=== PATIENT | male | born 1970 | race African-American/Black ===

== ENCOUNTER 2018-05-11 08:11 | Emergency (ER) | payer SELFPAY ==
[2018-05-11 08:35] LABS: #Eosinphils 0.2 thou/uL (0.0-0.7); #Lymphocytes 2.4 thou/uL (1.20-3.40); #Monocytes 0.7 thou/uL (0.11-0.59); #Neutrophils 5.2 thou/uL (1.40-6.50); %Basophils 0.5 % (0.0-1.0); %Eosinophils 2.9 % (0.0-10.0); %Lymphocytes 28.4 % (21.0-51.0); %Monocytes 7.9 % (0.0-10.0); %Neutrophils 60.2 % (42.0-75.0); Hemoglobin 15.9 g/dL (14.0-18.0); Mean Corpuscular HGB CONC 32.9 g/dL (32.0-36.0); Mean Corpuscular Hemoglobin 30.6 pg (27.0-31.0); Mean Corpuscular Volume 92.8 fL (78.0-98.0); Mean Platelet Volume 7.4 fL (7.4-10.4); Platelet Count 336 thou/uL (130-400); RBC Distribution Width 11.2 % (11.5-14.5); Red Blood Cell (RBC) Count 5.21 mill/uL (4.70-6.10); White Blood Cell (WBC) Count 8.6 thou/uL (4.8-10.8)
[2018-05-11 08:56] LABS: ALT (SGPT) 26 U/L (8-55); AST (SGOT) 21 U/L (5-34); Albumin 4.8 g/dL (3.5-5.0); Alkaline Phosphatase 102 U/L (40-150); Anion Gap 15 mmol/L (10-20); BUN (Urea Nitrogen) 11 mg/dL (8.9-20.6); Bilirubin, Total 0.4 mg/dL (0.2-1.2); Calc. Creatinine Clearance 0 mL/min (70-130); Calcium 10.3 mg/dL (7.8-10.44); Carbon Dioxide 27 mmol/L (22-29); Chloride 104 mmol/L (98-107); Estimated GFR-MDRD 86; Glucose 125 mg/dL (70-105); Potassium 4.6 mmol/L (3.5-5.1); Protein, Total 7.8 g/dL (6.0-8.3); Sodium 141 mmol/L (136-145)
[2018-05-11 09:52] LABS: Bilirubin Negative (Negative); Blood, Urine Negative (Negative); Clarity CLOUDY (Clear); Glucose, Urine (Dipstick) Negative (Negative); Leukocyte Negative (Negative); Nitrite Negative (Negative); Protein, Urine (Dipstick) Negative (Neg-Trace); Specific Gravity, Urine 1.009 (1.002-1.036); Urobilinogen 0.2 mg/dL (0.2-1.0); pH, Urine 7.5 (5.0-9.0)
[2018-05-11] MEDS ORDERED: Ketorolac Tromethamine 60 MG/2 ML VIAL ONE (10:18)
--- NOTE | 2018-05-11 10:18 | RAD ---
TWO VIEWS OF THE ABDOMEN AND UPRIGHT VIEW OF THE CHEST: COMPARISON: 07/24/13. HISTORY: History of diverticulitis with increased abdominal pain. FINDINGS: Supine and upright views of the abdomen and upright view of the chest show a nonspecific, nonobstruct ed bowel gas pattern. No free air or air fluid levels are seen on upright examination. The cardiomediastinal silhouette is normal in size. There is no evidence of consolidation, mass, or pleural effusion. IMPRESSION: No evidence of acute cardiopulmonary disease. POS: [facility]
== END 2018-05-11 10:53 | disposition home or self-care (01) ==
LOC: ERS 08:11
DX: K57.92 Diverticulitis of intestine, part unspecified, without perforation or abscess without bleeding (principal); F17.210 Nicotine dependence, cigarettes, uncomplicated; Z71.6 Tobacco abuse counseling
CPT/HCPCS: 36415; 74022; 80053; 81003; 83690; 85025; 96372; 99406; J1885

== ENCOUNTER 2018-06-21 04:19 | Inpatient (IN) | payer SELFPAY ==
[2018-06-21 05:54] LABS: Bilirubin Negative (Negative); Blood, Urine Negative (Negative); Clarity CLEAR (Clear); Glucose, Urine (Dipstick) Negative (Negative); Leukocyte Negative (Negative); Nitrite Negative (Negative); Protein, Urine (Dipstick) Negative (Neg-Trace); Specific Gravity, Urine 1.009 (1.002-1.036); Urobilinogen 0.2 mg/dL (0.2-1.0)
[2018-06-21 06:07] LABS: #Eosinphils 0.2 thou/uL (0.0-0.7); #Lymphocytes 2.1 thou/uL (1.20-3.40); #Neutrophils 11.1 thou/uL (1.40-6.50); %Basophils 0.3 % (0.0-1.0); %Eosinophils 1.6 % (0.0-10.0); %Lymphocytes 14.4 % (21.0-51.0); %Monocytes 6.7 % (0.0-10.0); Hemoglobin 15.4 g/dL (14.0-18.0); Mean Corpuscular HGB CONC 31.1 g/dL (32.0-36.0); Mean Corpuscular Hemoglobin 28.2 pg (27.0-31.0); Mean Corpuscular Volume 90.7 fL (78.0-98.0); Mean Platelet Volume 7.6 fL (7.4-10.4); Platelet Count 317 thou/uL (130-400); RBC Distribution Width 11.4 % (11.5-14.5); Red Blood Cell (RBC) Count 5.45 mill/uL (4.70-6.10); White Blood Cell (WBC) Count 14.4 thou/uL (4.8-10.8)
[2018-06-21] MEDS ORDERED: Ondansetron HCl/PF 4 MG/2 ML Vial ONE (06:24)
[2018-06-21 06:27] LABS: ALT (SGPT) 19 U/L (8-55); AST (SGOT) 13 U/L (5-34); Albumin 4.9 g/dL (3.5-5.0); Alkaline Phosphatase 104 U/L (40-150); Anion Gap 15 mmol/L (10-20); BUN (Urea Nitrogen) 10 mg/dL (8.9-20.6); Bilirubin, Total 0.6 mg/dL (0.2-1.2); Calc. Creatinine Clearance 0 mL/min (70-130); Calcium 10.4 mg/dL (7.8-10.44); Carbon Dioxide 26 mmol/L (22-29); Chloride 103 mmol/L (98-107); Estimated GFR-MDRD Greater than 90; Glucose 108 mg/dL (70-105); Lipase 147 U/L (8-78); Potassium 4.5 mmol/L (3.5-5.1); Protein, Total 7.9 g/dL (6.0-8.3); Sodium 139 mmol/L (136-145)
[2018-06-21 06:39] LABS: CK (CPK) 97 U/L (30-200)
[2018-06-21 06:47] LABS: Troponin I Less than 0.010 ng/mL (< 0.028)
[2018-06-21] MEDS ORDERED: Ondansetron HCl/PF 4 MG/2 ML Vial IVP PRN (08:15)
[2018-06-21] MEDS ORDERED: Morphine 4 MG/ML VIAL SLOW IVP PRN ×2 (08:17)
[2018-06-21] MEDS ORDERED: Nicotine 14 MG PATCH TD PRN (08:20)
[2018-06-21] MEDS ORDERED: NS 0.9% w/ 20 MEQ KCL 1,000 ML/1,000 ML BAG IV SCH (08:30)
[2018-06-21] MEDS ORDERED: metroNIDAZOLE 500 MG/100 ML BAG ONE (08:42)
--- NOTE | 2018-06-21 08:54 | HP ---
DATE OF SERVICE: 06/21/2018 CHIEF COMPLAINT: "So much pain, I could not sleep." HISTORY OF PRESENT ILLNESS: This is a 48-year-old male with history of diverticulitis over the past 5 years, tobacco use, peptic ulcer disease, who presents to the emergency room due to abdominal pain. The patient reports multiple flares of diverticulitis over the past 6-8 years with his last hospitalization here in 2015. He had a flare in April treated with antibiotics from his primary care and states that it never seemed like it went away. He reports over the past 2 days that he is "feeling way worse" with lower abdominal cramping, aching and burning, constant in quality, radiating to his back, rated at 10/10 in severity. He has had associated nausea, but no vomiting , one loose stool 2 days ago and none since. He denies any fevers, chills, or difficulty breathing. He does report chest pain yesterday that was "not major" and has since resolved. He has not used any pain medication, has not been seen for this. There were no precipitating or relieving factors for the pain. He does report that this is similar; however more severe, than flares in the past. In the emergency room, the patient treated with Zofran 8 mg IV, 1 liter of normal saline, morphine 6 mg and Hospitalist called for admission. ALLERGIES TO MEDICINE: NICKEL. MEDICATIONS: Dicyclomine 10 mg 4 times a day. PAST MEDICAL HISTORY: 1. Diverticulitis. 2. Peptic ulcer disease. 3. Irritable bowel syndrome. PAST SURGICAL HISTORY: 1. Hernia repair. 2. Right hand. 3. Left ankle. SOCIAL HISTORY: Patient lives alone, his mom Leatha Calvillo is his surrogate decision maker. He is a [employer]. He smokes marijuana occasionally, uses tobacco 1 pack every 3 days and socially drinks alcohol. FAMILY HISTORY: Negative for GI problems. REVIEW OF SYSTEMS: Positive for nausea, chest pain that has resolved, change in urination. He reports that it is a struggle, decreased appetite secondary to pain. Negative for fevers, chills, chest pain, shortness of breath and swelling in his legs. All remaining review of systems are reviewed and negative. PHYSICAL EXAMINATION: VITAL SIGNS: Blood pressure 119/70, pulse 55, respirations 16, saturations 97% on room air, temperature 98.6. GENERAL: Awake, alert, responsive, in no apparent distress, able to speak in full sentences. HEENT: His pupils are equal, round and reactive to light. Oral mucosa is pink and moist. NECK: Supple, nontender. LYMPHATICS: No palpable cervical or supraclavicular lymphadenopathy. LUNGS: Clear to auscultation bilateral. HEART: Normal S1, S2, regular rate and rhythm, no audible murmurs. ABDOMEN: Soft. Present bowel sounds. Tenderness to palpation in the lower quadrants. No rebound or guarding and no palpable abnormalities. EXTREMITIES: No clubbing, cyanosis, or edema. SKIN: No visible rashes. NEUROLOGIC: No focal deficits. PSYCHIATRIC: Euthymic, linear, logical, goal-directed thought process. LABORATORY DATA: 1. Reviewed. CBC; 14.4, 15.4, 49.4, 317. 2. Chemistry: 139, 4.5, 103, 26, 10, 0.9, 108. 3. LFTs are normal. 4. Lipase 147. 5. Troponin negative. IMPRESSION: 1. Lower abdominal pain consistent with prior episodes of diverticulitis, with associated nausea. 2. Peptic ulcer disease, asymptomatic. 3. IBS on dicyclomine. 4. Tobacco use. 5. Marijuana use. PLAN: 1. Observation status in the hospital. 2. Obtain a CT scan given the recurrence of the diverticulitis flares, as well as General Surgery consultation as patient reports that the flares are increasing in both quantity and severity. 3. We will start IV antibiotics with Cipro and Flagyl, manage pain, manage nausea, and hydrate with IV fluids. 4. Holding his dicyclomine for now. 5. N.p.o. until the pain is improved. 6. Deep venous thrombosis prophylaxis. The patient is ambulatory, will use pneumatic compression devices. 7. Gastrointestinal prophylaxis - IV famotidine. 8. Code status is FULL and surrogate decision maker is the patient's mom. I reviewed the plan of care with the patient who demonstrates understanding. No questions or further needs at end of evaluation. Given the severity of his pain, I do not think that the patient will do well managing this as an outpatient. Of note, on arrival to the medical floor, the patient was noted to be bradycardic in the 40's. ECG reviewed and sinus rhythm, normal axis, normal intervals, abnormal R wave progression, inverted t waves in V4-V6/inferior/ lateral leads. Patient was moved to telemetry for monitoring and echo ordered. He was also changed to inpatient status. [facility]CO
--- NOTE | 2018-06-21 09:55 | CT ---
ABDOMEN AND PELVIS CT SCAN WITH IV CONTRAST: HISTORY: A 48-year-old male with a history of left lower quadrant and suprapubic abdominal pain. History of i rritable bowel syndrome, peptic ulcer disease, and prior diverticulitis. COMPARISON: 10/08/2016 FINDINGS: The lung bases are clear. The visualized liver, pancreas, spleen, and adrenal glands, are unremarkab le. Small renal hypodensities, too small to characterize but statistically small cysts. The proxima l appendix is borderline in size, but no wall thickening, and there is contrast media extending essen tially throughout the length of the appendix. No CT evidence for acute appendicitis. There is some generalized colonic diverticulosis, including in the sigmoid colon, where there is some pericolonic f at stranding and some minimal thickening of the adjacent fascia. This is in the same location of the patient's previous acute diverticulitis seen on 10/08/2016, which, at that time, was much worse. In addition, there is a new focus of minimal pericolonic fat stranding in the mid descending colon, whi ch is new from the prior study, evidence for acute diverticulitis. No evidence for extraluminal gas or drainable abscess. Several loops of mildly dilated jejunum in the left upper quadrant, possible s ome mild focal ileus. IMPRESSION: 1. New focus of pericolonic fat stranding in the mid left colon with associated diverticulosis, evid ence for minimal acute diverticulitis without evidence for a drainable abscess or extraluminal gas. 2. Minimal pericolonic fat stranding and some adjacent fascial thickening in the region of the sigmo id colon, which is in the same location of a focus of acute diverticulitis seen on the 2016 study, wh ich was much worse at that time. This could well represent a small focus of residual chronic change. A small reactivated acute diverticulitis focus cannot be excluded. 3. No CT evidence for acute appendicitis. 4. Edi-zkyuf-zy-characterize renal low attenuation foci, statistically small cysts. 5. Minimally dilated jejunal bowel loops in the left upper quadrant, nonspecific, possibly related t o focal ileus. POS: [facility]
[2018-06-21] MEDS: Famotidine/PF 20 mg/2ml Vial SLOW IVP SCH ×2 (11:11→21:30)
[2018-06-21] MEDS ORDERED: ISOVUE-370 76%-LOCM 1 ML ONE (11:51)
[2018-06-21 12:46] VITALS: BMI 27.6
[2018-06-21] MEDS: Sodium Chloride 0.9% 1,000 ML IV SCH ×2 (13:49→21:30)
[2018-06-21] MEDS: metroNIDAZOLE 500 MG in Premix Bag 1 BAG IVPB SCH (16:13)
[2018-06-22] MEDS: metroNIDAZOLE 500 MG in Premix Bag 1 BAG IVPB SCH ×4 (00:15→23:52)
--- NOTE | 2018-06-22 03:16 | HP ---
HISTORY OF PRESENT ILLNESS: Issa Mas is a 48-year-old black male who works at [employer], has had frequent episodes of diverticulitis 2 to 3 times a year since 2015. This has been treated mostly as an outpatient with oral antibiotics. He has never had a colonoscopy, there is no family history of colon cancer. This episode has been occurring over 2 days, causing pain in his left suprapubic area and left lateral abdomen. He was admitted by hospitalist service, afebrile. He was noted to be flori ycardic hence sent to telemetry. White count is 14. CAT scan reveals changes of diverticulitis in t he mid left colon. The patient has had numerous CAT scans of abdomen and pelvis, 6 in numbers since 2012. Now in 03/2013 at this institution. He had a CAT scan of the abdomen and pelvis, that was nor mal. Stone protocol, 03/18/2016, he had a CAT scan revealing changes consistent with sigmoid colon d iverticulitis; 08/01/2016, he had a CAT scan demonstrated sigmoid diverticulitis again and on , he had a followup CAT scan revealing sigmoid diverticulitis and on 10/08/2016, he had another CA T scan demonstrating probably diverticulitis admission. The patient has been treated on other occasions from the emergency room and by an outpatient physician with diverticulitis, treating him wi th oral antibiotics and clear liquids until his pain improves and he is converted to soft diet. ALLERGIES: None. TOBACCO: None. ALCOHOL: Rarely. MEDICATIONS: Dicyclomine, Nexium. PAST SURGICAL HISTORY: Supraumbilical ventral hernia repair, surgery on his hand, surgery on his ank le. Dr. Ulloa, 11/2015, performed Ventralight mesh repair of ventral hernia, supraumbilical. PAST MEDICAL HISTORY: Mild reflux, diverticulitis. PHYSICAL EXAMINATION: GENERAL: The patient is in no distress. VITAL SIGNS: 5 feet 10 inches, 193 pounds, 27 BMI, 98.2 degrees, 57, 14, 118/57. HEAD, EYES, EARS, NOSE AND THROAT: Unremarkable. LUNGS: Clear to auscultation. No pulmonary wheezing. CARDIAC: Regular rate and rhythm without murmur or gallop. ABDOMEN: Soft, tenderness in his suprapubic area and left lateral abdomen with guarding, findings co nsistent with diverticulitis. Remainder of the right abdomen and right upper quadrant are soft and n ontender. Abdomen is nondistended. EXTREMITIES: Palpable pulses. No ankle edema. No lymphadenopathy in neck, groins, axilla. NEUROLOGICAL: Intact. Cranial nerves intact. No focal deficit. LABORATORY DATA: White count 14, hemoglobin 15. Comprehensive metabolic profile is unremarkable. ASSESSMENT AND PLAN: Recurrent episodes of diverticulitis. At this point, we would recommend contin ue treatment with intravenous antibiotics and a clear liquid diet. Would not advance his diet until his symptoms improve. Once his pain is improved, we then could advance him to a soft diet. We would recommend a low-fiber diet for two weeks and transition to high-fiber diet after 2 weeks from this e vent. Would recommend consultation as an outpatient with a binman for screening colonosc opy, both due to his age of 48 and recurrent episodes of diverticulitis. Family history is negative for colon cancer. This colonoscopy should be performed no sooner than 4 to 5 weeks. The patient cou ld be considered for elective sigmoid colon resection due to his frequent episodes of diverticulitis. This episode could probably be treated as an outpatient with oral Augmentin and liquids. He states this episode is no more severe than his past episodes. Of course, he is being worked up for his bra dycardia. Patient can follow up with Dr. Ulloa or myself in my office once discharged home on oral antibiotics. Currently, the patient can see Gastroenterology consultation as an outpatient, seek an appointment in 3 to 4 weeks to arrange colonoscopy in the next 6 to 8 weeks. He can consult in our office for future elective colon resection.
[2018-06-22 05:57] LABS: #Basophils 0.1 thou/uL (0.0-0.2); #Eosinphils 0.2 thou/uL (0.0-0.7); #Lymphocytes 2.2 thou/uL (1.20-3.40); #Monocytes 0.8 thou/uL (0.11-0.59); #Neutrophils 6.1 thou/uL (1.40-6.50); %Basophils 0.7 % (0.0-1.0); %Eosinophils 1.9 % (0.0-10.0); %Lymphocytes 23.5 % (21.0-51.0); %Monocytes 8.4 % (0.0-10.0); %Neutrophils 65.6 % (42.0-75.0); Hemoglobin 14.1 g/dL (14.0-18.0); Mean Corpuscular HGB CONC 32.7 g/dL (32.0-36.0); Mean Corpuscular Hemoglobin 29.9 pg (27.0-31.0); Mean Corpuscular Volume 91.4 fL (78.0-98.0); Mean Platelet Volume 7.6 fL (7.4-10.4); Platelet Count 266 thou/uL (130-400); RBC Distribution Width 11.4 % (11.5-14.5); White Blood Cell (WBC) Count 9.3 thou/uL (4.8-10.8)
[2018-06-22 06:20] LABS: Anion Gap 13 mmol/L (10-20); BUN (Urea Nitrogen) 7 mg/dL (8.9-20.6); Calc. Creatinine Clearance 124 mL/min (70-130); Calcium 9.5 mg/dL (7.8-10.44); Carbon Dioxide 23 mmol/L (22-29); Chloride 107 mmol/L (98-107); Estimated GFR-MDRD Greater than 90; Glucose 91 mg/dL (70-105); Potassium 4.2 mmol/L (3.5-5.1); Sodium 139 mmol/L (136-145)
[2018-06-22] MEDS: Famotidine/PF 20 mg/2ml Vial SLOW IVP SCH ×2 (08:59→21:47)
[2018-06-22] MEDS: Sodium Chloride 0.9% 1,000 ML IV SCH ×2 (11:45→17:26)
[2018-06-22] MEDS ORDERED: traMADol HCl 50 MG TAB PO PRN (12:24)
[2018-06-22] MEDS ORDERED: Acetaminophen 500 MG TAB PO PRN (12:24)
--- NOTE | 2018-06-22 12:27 | PDOC.PN ---
- Subjective Encounter Start Date: 06/22/18 (f/u diverticulitis) Encounter Start Time: 12:25 Subjective: Pt reports pain was 8/10, now 3-4/10 after morphine. Denies n/v. -: denies any new concerns - Objective Resuscitation Status: Resuscitation Status FULL:Full Resuscitation Vital Signs & Weight: Vital Signs (12 hours) Temp Pulse Resp BP Pulse Ox 06/22/18 09:00 99.9 F H 45 L 16 94 L 06/22/18 07:59 99.9 F H 45 L 16 125/62 98 06/22/18 04:00 98.8 F 55 L 16 152/67 H 98 Weight Admit Weight 192 lb 1.6 oz Weight 192 lb 1.6 oz I&O: 06/21/18 06/22/18 06/23/18 06:59 06:59 06:59 Intake Total 700 Output Total 200 Balance 500 Result Diagrams: 06/22/18 05:14 06/22/18 05:14 EKG Reviewed by me: Yes (sinus 40-60's) Phys Exam - Physical Examination Constitutional: NAD Respiratory: no wheezing, no rales, no rhonchi, clear to auscultation bilateral Cardiovascular: RRR, no significant murmur Gastrointestinal: soft, no distention, positive bowel sounds ttp lower abdomen, no rebound/guarding or palpable masses Musculoskeletal: no edema, pulses present Neurological: non-focal, moves all 4 limbs Psychiatric: normal affect Dx/Plan (1) Diverticulitis large intestine w/o perforation or abscess w/o bleeding Code(s): K57.32 - DVTRCLI OF LG INT W/O PERFORATION OR ABSCESS W/O BLEEDING Status: Acute (2) Bradycardia Code(s): R00.1 - BRADYCARDIA, UNSPECIFIED Status: Acute (3) Tobacco abuse Code(s): Z72.0 - TOBACCO USE Status: Chronic (4) Cannabis abuse Code(s): F12.10 - CANNABIS ABUSE, UNCOMPLICATED Status: Chronic (5) GERD (gastroesophageal reflux disease) Code(s): K21.9 - GASTRO-ESOPHAGEAL REFLUX DISEASE WITHOUT ESOPHAGITIS Status: Chronic - Plan * Diverticulitis - appreciate Gen Surg consult * Advance diet to clear liquids * Add oral pain meds, continue IV pain meds prn * * bradycardia - sinus - echo ordered yesterday * * Follow up needed: With GI for colonoscopy in about a month. With Gen Surgery if pt desires elective colon resection. Will need high fiber diet after 2 weeks, and a low fiber diet when taking solid PO until then. * * dvt prophy - ambulatory * gi prophy - will d/c as diet advanced * code status full * reviewed plan of care iwht patient, no questions or further needs at end of eval.
--- NOTE | 2018-06-22 20:43 | PRG ---
DATE OF SERVICE: 06/22/2018 SUBJECTIVE: Issa Mas is on telemetry. Heart rate is 45-63. The patient reports his pain is much better. He is advanced to liquids. He continues on intravenous antibiotics. OBJECTIVE: LUNGS: Clear to auscultation. CARDIAC: Regular rate and rhythm without murmur or gallop. ABDOMEN: Soft, tenderness in his lower abdomen with diminished guarding less tender left abdomen. ASSESSMENT AND PLAN : Resolving diverticulitis. Agree with liquids. Could change him to Augmentin in the next day or two. Plan to discharge home with 10 days of Augmentin (recurrent episodes deserve longer oral course). Once discharged home, the patient should advance his diet from a liquid to a s oft diet, low fiber adhering to a low fiber diet for two weeks, transitioning to a high fiber diet af ter that. The patient desires a colon resection to avoid future episodes of diverticulitis as he has had 3-4 episodes every year for the last three years. Considering this, we will ask Cardiology to s ee him normally to address his bradycardia, but also to see him in reference to preoperative clearanc e for elective colon resection.
--- NOTE | 2018-06-23 09:02 | CON ---
DATE OF CONSULTATION: 06/23/2018 HISTORY OF PRESENT ILLNESS: Issa Mas is a 48-year-old black male who has had several episodes of diverticulitis. He was hospitalized here in 2015 with this and then again had another episode earlier this year. He was again hospitalized with lower abdominal pain which felt to be due to diverticulitis. He has been noted to be extremely bradycardic and was transferred to telemetry for evaluation. On echo, his ejection fraction was 40% -45% and Cardiology consultation was requested. Mr. aMs denies any dyspnea on exertion. He has had 3 episodes of paroxysmal nocturnal dyspnea over the last year. He will awaken in the middle of the night, feel short of breath, use an inhaler, and approximately 1 hour later, his breathing is normal and he can go back to bed. He denies any peripheral edema. He had one episode of upper right chest - right shoulder discomfort that lasted approximately 30 minutes and occurred at rest. He denies any exertional chest discomfort. PAST MEDICAL HISTORY: No history of hypertension, diabetes or hypercholesterolemia. MEDICATIONS: Nexium 40 mg p.r.n. and Bentyl 10 mg q.i.d. p.r.n. ALLERGIES: NICKEL. SOCIAL HISTORY: Smokes one-third pack per day. He occasionally drinks alcohol and smokes marijuana. FAMILY HISTORY: Negative for coronary artery disease. PAST SURGICAL HISTORY: Hernia repair, right hand surgery, left ankle surgery. REVIEW OF SYSTEMS: A 12 point review of systems otherwise unremarkable. PHYSICAL EXAMINATION: VITAL SIGNS: 122/68, pulse of 50, sinus rhythm on the monitor. HEENT: PERRL. NECK: Supple. Chest: Clear. CARDIAC: S1, S2 normal, without any S3, S4 or murmurs. ABDOMEN: Normal bowel sounds with diffuse lower abdominal tenderness. EXTREMITIES: Revealed no clubbing, cyanosis or edema. NEUROLOGIC: Grossly intact. SKIN: Warm and dry. IMAGING DATA AND LABORATORY DATA: EKG reveals sinus bradycardia with sinus arrhythmia with rate of 53 per minute. He has nonspecific T-wave changes. CBC is unremarkable on the second one. However, the first CBC revealed a white count 14,400. Sodium 139, potassium 4.2, chloride 107, carbon dioxide 23, BUN 7 , creatinine 0.88, troponin I x1 is normal. TSH is normal. Lipase 147. Urinalysis is unremarkable. Echocardiogram revealed an ejection fraction of 40- 45% with mild left atrial enlargement, mild mitral regurgitation, aortic valvular sclerosis and mild tricuspid regurgitation. IMPRESSION: 1. Severe sinus bradycardia with heart rates in the mid 40s. He denies any history of lightheadedness, dizziness, or syncope. 2. Mild left ventricular dysfunction with ejection fraction of 40%-45% on echocardiogram. 3. Three episodes of paroxysmal nocturnal dyspnea over the last year. 4. Atypical right chest - right shoulder discomfort. 5. Diverticulitis. 6. Gastroesophageal reflux disease. 7. Irritable bowel syndrome. PLAN: Mr. Mas appears to be asymptomatic from his sinus bradycardia and this probably does not require any treatment. However, during surgery, he may need to have intermittent doses of atropine. With his left ventricular dysfunction and episodes of paroxysmal nocturnal dyspnea, he will undergo Lexiscan Cardiolite testing today for further evaluation. [facility]
[2018-06-23] MEDS ORDERED: Magnesium Sulfate 2 GM, Admixture Fee 1 EACH in Sodium Chloride 0.9% 100 ML IVPB SCH (09:15)
[2018-06-23] MEDS: Sodium Chloride 0.9% 1,000 ML IV SCH (09:16)
[2018-06-23] MEDS: Famotidine/PF 20 mg/2ml Vial SLOW IVP SCH (09:16)
[2018-06-23] MEDS: metroNIDAZOLE 500 MG in Premix Bag 1 BAG IVPB SCH (09:17)
[2018-06-23] MEDS ORDERED: Regadenoson 0.4 MG/5 ML SYRINGE ONE (09:57)
--- NOTE | 2018-06-23 10:21 | PDOC.PN ---
- Subjective Encounter Start Date: 06/23/18 (f/u diverticulitis) Encounter Start Time: 10:17 Subjective: Pt c/o sore throat since yesterday - on left side, pain wiht swallowing. -: reports abd pain is improved without pain meds and 5/10 in severity - Objective Resuscitation Status: Resuscitation Status FULL:Full Resuscitation Vital Signs & Weight: Vital Signs (12 hours) Temp Pulse Resp BP Pulse Ox 06/23/18 07:47 98.4 F 56 L 16 130/75 97 06/23/18 03:27 98.6 F 50 L 18 122/68 95 Weight Admit Weight 192 lb 1.6 oz Weight 193 lb 14.4 oz I&O: 06/22/18 06/23/18 06/24/18 06:59 06:59 06:59 Intake Total 700 2535 Output Total 200 Balance 500 2535 Result Diagrams: 06/22/18 05:14 06/22/18 05:14 EKG Reviewed by me: Yes (tele - sinus 40-50's wiht 4 beats of VT at 23:43) Phys Exam - Physical Examination Constitutional: NAD no erythema of oral mucosa/palate ttp along the ant left mid-cervical LN without palp adenopathy Respiratory: no wheezing, no rales, no rhonchi, clear to auscultation bilateral Cardiovascular: RRR, no significant murmur Gastrointestinal: soft, no distention, positive bowel sounds ttp lower abdomen, no rebound/guarding/palp abnormality Musculoskeletal: no edema Neurological: non-focal, moves all 4 limbs Psychiatric: normal affect Skin: no rash Dx/Plan (1) Diverticulitis large intestine w/o perforation or abscess w/o bleeding Code(s): K57.32 - DVTRCLI OF LG INT W/O PERFORATION OR ABSCESS W/O BLEEDING Status: Acute (2) Bradycardia Code(s): R00.1 - BRADYCARDIA, UNSPECIFIED Status: Acute (3) Tobacco abuse Code(s): Z72.0 - TOBACCO USE Status: Chronic (4) Cannabis abuse Code(s): F12.10 - CANNABIS ABUSE, UNCOMPLICATED Status: Chronic (5) GERD (gastroesophageal reflux disease) Code(s): K21.9 - GASTRO-ESOPHAGEAL REFLUX DISEASE WITHOUT ESOPHAGITIS Status: Chronic Qualifiers: Esophagitis presence: esophagitis presence not specified Qualified Code(s) : K21.9 - Gastro-esophageal reflux disease without esophagitis - Plan * Diverticulitis - appreciate Gen Surg consult - when ready for d/c plan on 10 days of augmentin, liquid diet * Oral pain meds, continue IV pain meds prn * * bradycardia - sinus with EF 40-45%, appreciate cardiology consult with plan for nuc stress test today * * Follow up needed: With GI for colonoscopy in about a month. With Gen Surgery if pt desires elective colon resection. Will need high fiber diet after 2 weeks, and a low fiber diet when taking solid PO until then. * * dvt prophy - ambulatory * code status full * reviewed plan of care iwht patient, no questions or further needs at end of eval. * * anticipate d/c when cleared by cardiology - pt desires today.
--- NOTE | 2018-06-23 15:39 | NM ---
NUCLEAR MEDICINE CARDIAC MYOCARDIAL PERFUSION SPECT EJECTION FRACTION STUDY WALL MOTION CINE: HISTORY: A 48-year-old male smoker who presents with chest pain, dyspnea, and bradycardia. TECHNIQUE: Number of days: 1 Rest study: Tc99m sestamibi (Cardiolite) dose: 9.0 mCi Pharmacologic stress: Lexiscan dose: 0.4 mg Stress study: Tc99m sestamibi (Cardiolite) dose: 30.0 mCi FINDINGS: CARDIAC (MYOCARDIAL PERFUSION) SPECT There are no reversible myocardial perfusion defects. EJECTION FRACTION STUDY EF = 45% WALL MOTION CINE No focal wall motion abnormality identified. IMPRESSION: 1, No evidence of reversible ischemia. 2. Decreased left ventricular ejection fraction of 45%. TERI Ji POS: [facility]
[2018-06-23 17:13] VITALS: BP 142/68; TEMP 99.3
--- NOTE | 2018-06-23 23:27 | DIS ---
DATE OF ADMISSION: 06/21/2018 DATE OF DISCHARGE: 06/23/2018 CONSULTANTS: 1. Dr. Cerda of General Surgery. 2. Dr. Mayer of Cardiology. FINAL DIAGNOSES: 1. Diverticulitis. 2. Nonischemic cardiomyopathy with EF 40-45%. 3. Bradycardia, asymptomatic. 4. Peptic ulcer disease. 5. Irritable bowel. 6. Nicotine use. 7. Cannabis use. MEDICATIONS: Reconciled at discharge. NEW MEDICATIONS: 1. Augmentin 875/125 one tablet p.o. b.i.d. for 10 days, prescription for 20 tablets. 2. Furosemide 20 mg 1 p.o. daily, prescription for 30 tablets. 3. Lisinopril 2.5 mg p.o. daily, prescription for 30 tablets. 4. Tylenol 1000 mg every 6 hours as needed for pain. Refills of Furosemide and Lisinopril to be requested from the Primary Care Provider - this is noted on the discharge paperwork. MEDICATIONS DISCONTINUED: Dicyclomine. MEDICATIONS TO CONTINUE: Nexium 40 mg daily as needed. HISTORY OF PRESENT ILLNESS: Mr. Mas is a 48-year-old male with the above medical problems who presented to the emergency room with abdominal pain. He had been having pain off and on since April when he was treated for diverticulitis flare which never really went away. A few days prior to admission, the pain had increased in severity rated as a 10/10, which prompted him to go to the emergency room. In the emergency room, presentation consistent with a diverticulitis flare and the patient was admitted to the hospital. HOSPITAL COURSE: The patient was started on IV antibiotics, kept n.p.o. overnight and underwent CT scan, which confirmed diverticulitis in 2 locations. He was noted on admission to be bradycardic in the 40s and transferred to the telemetry unit for monitoring. For the diverticulitis, the patient was evaluated by Dr. Cerda, with discussion on dietary changes, and follow up in the outpatient setting for elective colon resection due to the number of diverticulitis flares over the past 6-8 years. Specific recommendations are 10 days of Augmentin, a liquid diet until the pain is improved, transitioning to a low fiber diet for 2 weeks followed by a high fiber diet. Patient will follow up with Dr. Cerda in the outpatient setting if he is interested in surgery. In the meantime, it is recommended that he undergo colonoscopy, both for screening based on age as well as for further evaluation of the location as well as to general evaluation post-diverticulitis. On day of discharge, the patient's pain is improved, is tolerating a liquid diet, and requesting to go home. For the bradycardia, patient was monitored on telemetry and maintained a sinus rhythm with a rate in the 40s and 50s. He did have one brief episode of arrhythmia that was reviewed with Dr. Mayer, and possibly aberrant conduction. The patient has remained asymptomatic from the bradycardia. Echocardiogram demonstrated an EF of 40-45%. Because of this, he underwent stress test on day of discharge, which is normal, no evidence of reversible ischemia, and confirms EF of around 45%. In discussion with Dr. Mayer, it is recommended that patient is on a low dose DAISY inhibitor, low dose diuretic, with planned followup with Dr. Mayer in 3 months. In the meantime, the patient is recommended to follow up with his primary care provider to recheck his renal function, and refill medications. Enough of the cardiac medicines have been provided for 1 month. The patient is overall feeling well, tolerating p.o., requesting to go home. He desires to continue using Tylenol as needed. We discussed avoidance of any anti-inflammatory medication such as ibuprofen and Motrin as these can negatively affect the heart. DIET: Liquids, transitioning to solid food that is low fiber for 2 weeks, followed by high fiber diet. ACTIVITIES: 1. No limitations. 2. Tobacco cessation is encouraged. PHYSICAL EXAMINATION: On day of discharge. Please see today's note for details. FREITAS FINDINGS AND TEST RESULTS: 1. CBC on admission 14.4, 15.4, 49.4, 317, repeat white blood cell count yesterday 9.3. 2. Chemistry 139, 4.2, 107, 23, 7, 0.88, 91. 3. LFTs are normal. 4. Lipase 147, TSH 1.28. 5. Urinalysis was negative. 6. Nuclear medicine stress test, no reversible ischemia, decreased LV ejection fraction of 45%. 7. CT abdomen and pelvis, new focus of pericolonic fat stranding in the mid left colon with associated diverticulosis, evidence for minimal acute diverticulitis without evidence of an abscess or extraluminal gas; minimal pericolonic fat stranding and some adjacent fascial thickening in the region of the sigmoid colon which is the same location as a focus of acute diverticulitis seen in the 2016 study which was much worse at that time. This may be a small focus of residual chronic change or a small reactivated acute diverticulitis, no CVT evidence for acute appendicitis; too small to characterize, renal, low attenuation foci statistically small cyst; minimally dilated jejunal bowel loops in the left upper quadrant, nonspecific and may be related to focal ileus. 8. Chest x-ray on 06/23/2018 is negative for any acute abnormality. I reviewed with patient this hospitalization, the importance of followup, both the heart condition that is a new diagnosis, as well as the diverticulitis which is an acute on chronic issue, the return for care precautions. He demonstrates understanding. DISCHARGE DISPOSITION: Home Total time coordinating discharge is 35 minutes. MARCO
== END 2018-06-23 18:20 | disposition home or self-care (01) | DRG 392 ==
LOC: ERS 04:19 → OBSVTOIN 06:58 → T4-A 06:58 → 2NO 12:42
PROVIDERS: ADMIT Hospitalist; ATTEND Hospitalist
DX: K57.32 Diverticulitis of large intestine without perforation or abscess without bleeding (principal); I42.9 Cardiomyopathy, unspecified; R00.1 Bradycardia, unspecified; F17.210 Nicotine dependence, cigarettes, uncomplicated; F12.10 Cannabis abuse, uncomplicated; K21.9 Gastro-esophageal reflux disease without esophagitis; K27.9 Peptic ulcer, site unspecified, unspecified as acute or chronic, without hemorrhage or perforation; K58.9 Irritable bowel syndrome, unspecified; K57.30 Diverticulosis of large intestine without perforation or abscess without bleeding; I51.9 Heart disease, unspecified
CPT/HCPCS: 36415; 74177; 78452; 80048; 80053; 81003; 82553; 83690; 84443; 84484; 85025; 93005; 93017; 93306; 96361; 96365; 96368; 96375; A9500; J0744; J1956; J2270; J2405; J2785; J3475; J7050; S0028

== ENCOUNTER 2019-12-24 08:21 | Emergency (ER) | payer SELFPAY ==
[2019-12-24 09:01] LABS: #Basophils 0.1 thou/uL (0.0-0.2); #Eosinphils 0.2 thou/uL (0.0-0.7); #Lymphocytes 2.7 thou/uL (1.20-3.40); #Monocytes 0.7 thou/uL (0.11-0.59); #Neutrophils 5.2 thou/uL (1.40-6.50); %Basophils 0.8 % (0.0-1.0); %Eosinophils 1.9 % (0.0-10.0); %Lymphocytes 30.3 % (21.0-51.0); %Monocytes 7.6 % (0.0-10.0); %Neutrophils 59.3 % (42.0-75.0); Hemoglobin 15.2 g/dL (14.0-18.0); Mean Corpuscular HGB CONC 31.6 g/dL (32.0-36.0); Mean Corpuscular Hemoglobin 29.8 pg (27.0-31.0); Mean Corpuscular Volume 94.1 fL (78.0-98.0); Mean Platelet Volume 8.2 fL (7.4-10.4); Platelet Count 293 thou/uL (130-400); RBC Distribution Width 11.7 % (11.5-14.5); White Blood Cell (WBC) Count 8.8 thou/uL (4.8-10.8)
[2019-12-24 09:14] LABS: ALT (SGPT) 54 U/L (8-55); AST (SGOT) 29 U/L (5-34); Albumin 4.8 g/dL (3.5-5.0); Alkaline Phosphatase 84 U/L (40-110); Anion Gap 14 mmol/L (10-20); BUN (Urea Nitrogen) 10 mg/dL (8.4-25.7); Bilirubin, Total 0.5 mg/dL (0.2-1.2); Calc. Creatinine Clearance 0 mL/min (70-130); Calcium 9.7 mg/dL (7.8-10.44); Carbon Dioxide 26 mmol/L (22-29); Chloride 105 mmol/L (98-107); Estimated GFR-MDRD 89; Globulin 2.8 g/dL (2.4-3.5); Glucose 152 mg/dL (70-105); Lipase 38 U/L (8-78); Potassium 4.2 mmol/L (3.5-5.1); Protein, Total 7.6 g/dL (6.0-8.3); Sodium 141 mmol/L (136-145)
[2019-12-24 09:46] LABS: Bilirubin Negative (Negative); Blood, Urine Negative (Negative); Clarity Clear (Clear); Glucose, Urine (Dipstick) Normal (Negative); Leukocyte Negative Leu/uL (Negative); Nitrite Negative (Negative); Protein, Urine (Dipstick) Negative (Neg-Trace); Urobilinogen Normal mg/dL (Less than 2)
[2019-12-24] MEDS ORDERED: Aspirin Chewable 81 MG TAB ONE (11:05)
[2019-12-25 19:25] LABS: Chlam.trachomatis by PCR,Urine Not Detected (NotDetected)
== END 2019-12-24 11:27 | disposition left against medical advice (07) ==
LOC: ERS 08:21
DX: R10.30 Lower abdominal pain, unspecified (principal); R07.9 Chest pain, unspecified; F17.210 Nicotine dependence, cigarettes, uncomplicated
CPT/HCPCS: 80053; 81003; 83690; 85025; 87491; 87591; 93005; 96360; 96361

== ENCOUNTER 2024-06-04 04:46 | Emergency (ER) | payer OTHER, SELFPAY ==
[2024-06-04] MEDS ORDERED: Ketorolac Tromethamine 30 MG (1 mL) VIAL ONE (04:56)
[2024-06-04 05:30] LABS: #Basophils 0.03 10x3/uL (0.0-0.2); %Basophils 0.4 % (0.0-1.0); %Eosinophils 3.1 % (0.0-10.0); %Lymphocytes 31.4 % (21.0-51.0); %Monocytes 9.2 % (0.0-10.0); %Neutrophils 55.4 % (42.0-75.0); Hematocrit 46.5 % (42.0-52.0); Hemoglobin 14.9 g/dL (14.0-18.0); Mean Corpuscular Hemoglobin 30.1 pg (27.0-31.0); Mean Corpuscular Volume 93.9 fL (78.0-98.0); Mean Platelet Volume 10.6 fL (7.4-10.4); Platelet Count 276 10x3/uL (130-400); RBC Distribution Width 12.6 % (11.5-14.5); Red Blood Cell (RBC) Count 4.95 mill/uL (4.70-6.10)
[2024-06-04 05:51] LABS: ALT (SGPT) 49 U/L (8-55); AST (SGOT) 27 U/L (5-34); Albumin 4.4 g/dL (3.5-5.0); Alkaline Phosphatase 82 U/L (40-110); Anion Gap 15 mmol/L (10-20); BUN (Urea Nitrogen) 9 mg/dL (8.4-25.7); Bilirubin, Total 0.7 mg/dL (0.2-1.2); Calc. Creatinine Clearance 0 mL/min (70-130); Calcium 9.6 mg/dL (7.8-10.44); Carbon Dioxide 24 mmol/L (22-29); Chloride 106 mmol/L (98-107); Estimated GFR 96; Glucose 161 mg/dL (70-105); Lipase 61 U/L (8-78); Potassium 4.1 mmol/L (3.5-5.1); Protein, Total 7.4 g/dL (6.0-8.3); Sodium 141 mmol/L (136-145)
== END 2024-06-04 11:42 | disposition home or self-care (01) ==
LOC: ERS 04:46
DX: K57.92 Diverticulitis of intestine, part unspecified, without perforation or abscess without bleeding (principal); R03.0 Elevated blood-pressure reading, without diagnosis of hypertension; F17.210 Nicotine dependence, cigarettes, uncomplicated; Z55.6 Problems related to health literacy; Z79.82 Long term (current) use of aspirin
CPT/HCPCS: 36415; 80053; 83690; 85025; J1885

== ENCOUNTER 2025-11-11 06:35 | Emergency (ER) | payer OTHER, SELFPAY | END 2025-11-11 08:00 | disposition home or self-care (01) | LOC: ERS 06:35 | DX: K57.92 Diverticulitis of intestine, part unspecified, without perforation or abscess without bleeding (principal); F17.210 Nicotine dependence, cigarettes, uncomplicated | CPT/HCPCS: 99283 ==